=== PATIENT | male | born 2000 | race Caucasian/White ===

== ENCOUNTER 2023-06-27 17:18 | Emergency (ER) | payer OTHER, SELFPAY ==
[2023-06-27] VITALS (15 sets, daily range): BP systolic 131–171; BP diastolic 68–79; PULSE 68–95; RESP 14–23; TEMP 36.4–36.5; O2SAT 97–100
--- NOTE | 2023-06-27 17:15 | RT.EKG_ITS ---
APPROVED REPORT Exam: Resting ECG Reason for Exam: chest pain Patient Location: E HR:91 bpm ECG Measurements Heart Rate 91 AXIS [place] 156 P 84 QRSd 101 QRS 74 QT 456 T 76 QTc 560 Conclusion Sinus rhythm normal axis prolong QTC 560 no priors
--- NOTE | 2023-06-27 17:30 | DI.RAD_ITS ---
Exam(s) XR CHEST 2V PA LATERAL EXAM: XR CHEST 2V PA LATERAL CLINICAL HISTORY: chest pain TECHNIQUE: 2D digital imaging was performed of the chest. Two images were obtained. PA and lateral views were obtained. COMPARISON: No exams were available for comparison FINDINGS: MEDIASTINUM: Normal. HEART: Normal. PULMONARY VASCULATURE: Normal. LUNGS: Clear. PLEURAL SPACE: No pleural effusion or pneumothorax. BONE:Within normal limits for the patient's age. OTHER FINDINGS:Normal. IMPRESSION: No acute pulmonary findings. DATA REPOSITORY: RADIATION DOSE DELIVERED:
[2023-06-27] MEDS: Acetaminophen 325 MG TAB 650 MG PO (17:50)
[2023-06-27 17:51] LABS: Abs Immature Grans 0.01 10^3/uL (0.0-0.06); Absolute Basophil Count 0.04 10^3/uL (0.0-0.2); Absolute Eosinophil Count 0.07 10^3/uL (0.0-0.7); Absolute Lymphocyte Count 3.08 10^3/uL (1.2-3.4); Absolute Monocyte Count 0.79 10^3/uL (0.1-0.8); Absolute Neutrophil Count 3.71 10^3/uL (1.2-6.7); Basophils % 0.5; Eosinophils % 0.9; HCT 43.1 % (40.0-50.0); HGB 14.6 g/dL (13.5-17.5); Immature Grans % 0.1; MCH 29.1 pg (27.0-33.0); MCHC 33.9 % (32.0-36.0); MCV 86 fL (80-95); MPV 11.4 fL (8.0-11.0); Monocytes % 10.3; Neutrophils % 48.2; Platelet Count 208 10^3/uL (130-400); RBC 5.01 10^6/uL (4.36-5.78); RDW 11.8 % (11.8-14.1)
--- NOTE | 2023-06-27 18:13 | ED.GENADUL_ITS ---
HPI General Stated Complaint: Chest Pain EFRAIN: 2 Date/Time Provider Initiated Documentation: 06/27/23 17:22. HPI Narrative: This otherwise healthy 23-year-old male presents with left-sided chest pain with radiation down his left arm which presented approximately an hour after a ski race. He states they are at a restaurant when the pain started. He states he was not eating when the pain started. Denies history of similar symptoms in the past. He has had 2 recent flights to [place] in the past 3 weeks. He denies any calf pain or swelling, pleuritic pain associated or shortness of breath. He denies any nausea or vomiting. There is no history of sudden cardiac in his family family. He denies any regular tobacco use, illicit drug use, or regular alcohol consumption. He denies known exacerbating or alleviating factors, specifically no change with position change. He took 324 mg of aspirin prior to arrival reportedly. Denies history of similar symptoms in the past. Denies nausea, vomiting, diaphoresis. Denies any pain associated specifically with exertion. Denies recent illness, cough, fever, chills. Related Data Home Medications Medication Instructions Recorded Confirmed famotidine 20 mg tablet (Pepcid) 20 mg PO DAILY #14 tabs 06/27/23 omeprazole 20 mg capsule,delayed 20 mg PO DAILY 4 weeks #28 caps 06/27/23 release Previous Rx's Medication Instructions Recorded famotidine 20 mg tablet (Pepcid) 20 mg PO DAILY #14 tabs 06/27/23 omeprazole 20 mg capsule,delayed 20 mg PO DAILY 4 weeks #28 caps 06/27/23 release PFSH All Active Problems (Updated 06/27/23 @ 20:06 by MORIS Frankel) Chest pain (Acute) Social History Smoking/Tobacco Use Status: Current-Occasional Tobacco Type: smokeless tobacco Smoking risk assessment performed?: Yes Alcohol Intake: current Alcohol Intake frequency: holidays/special occasions only Substance use type: does not use Course Vital Signs Vital signs: Vital Signs Temperature 36.5 C 06/27/23 17:25 Pulse 90 06/27/23 17:25 Respiratory Rate 18 06/27/23 17:25 Blood Pressure 157/79 H 06/27/23 17:25 Pulse Oximetry 100 06/27/23 17:25 Temperature 36.5 C 06/27/23 17:25 Temperature Source Temporal Artery Scan 06/27/23 17:25 Pulse 90 06/27/23 17:25 Respiratory Rate 18 06/27/23 17:25 Blood Pressure 157/79 H 06/27/23 17:25 Pulse Oximetry 100 06/27/23 17:25 Oxygen Delivery Method Room Air 06/27/23 17:25 Oxygen Flow Rate 0 06/27/23 17:25 Lab/Test Results Lab/Test Results: Laboratory Tests Range/Units 06/27/23 17:35 WBC (4.4-10.8) 10^3/uL 7.70 RBC (4.36-5.78) 10^6/uL 5.01 Hgb (13.5-17.5) g/dL 14.6 Hct (40.0-50.0) % 43.1 MCV (80-95) fL 86 MCH (27.0-33.0) pg 29.1 MCHC (32.0-36.0) % 33.9 RDW (11.8-14.1) % 11.8 Plt Count (130-400) 10^3/uL 208 MPV (8.0-11.0) fL 11.4 H Immature Gran % 0.1 Neutrophils % 48.2 Lymphocytes % 40.0 Monocytes % 10.3 Eosinophils % 0.9 Basophils % 0.5 Nucleated RBC % (0.0-0.3) % 0.0 Absolute Neutrophils (1.2-6.7) 10^3/uL 3.71 Absolute Lymphocytes (1.2-3.4) 10^3/uL 3.08 Absolute Monocytes (0.1-0.8) 10^3/uL 0.79 Absolute Eosinophils (0.0-0.7) 10^3/uL 0.07 Absolute Basophils (0.0-0.2) 10^3/uL 0.04 Medical Decision Making This 23-year-old male presents with chest pain, started approximately an hour prior to arrival, states he had just eaten dinner, hamburger and [place] fries when the pain came on States left-sided chest pain with radiation into his arm, no family history of coronary artery disease, sudden cardiac , no history of illicit drug use, Patient states the pain has been coming and going He took 325 mg of aspirin prior to arrival Denies any calf pain or swelling Troponin and delta troponin negative Chest x-ray without acute abnormality per radiology interpretation review Low suspicion clinically for PE with negative D-dimer reassuring Symptomatic improvement on Maalox Protonix and Pepcid supplied to treat empirically for GERD Encouraged to follow closely in the outpatient setting Discharge Plan Disposition Patient Disposition: Home Condition: Stable Discharge Details Clinical Impression: Chest pain Primary Care Provider: Pamela,Local ED Provider: Lizy Ellis Home Meds and New Rx's Prescriptions: New famotidine [Pepcid] 20 mg tablet 20 mg PO DAILY Qty: 14 0RF omeprazole 20 mg capsule,delayed release(DR/EC) 20 mg PO DAILY 28 Days Qty: 28 0RF Discharge Instructions Instructions: Chest Pain (ED) Additional Instructions: Please take the Pepcid daily for the next 14 days and take 20 mg of omeprazole for the next month. Prilosec takes approximately 2 weeks to start working so the Pepcid will work daily until the omeprazole kicks in This is an tyzc-ile-inmnkav medication Stay away from spicy food, tomatoes, citrus, alcohol Please return earlier should you have new or worsening complaints Recommend recheck by the [facility] when you return to [facility] and limiting skiing until you are symptomatically improved Discharge Data Discharge Date/Time-TO BE ENTERED AT DEPARTURE: 06/27/23 20:22
[2023-06-27 18:20] LABS: ALT 41 U/L (16-63); AST 25 U/L (15-37); Albumin 4.6 g/dL (3.4-5.0); Alkaline Phosphatase 91 U/L (46-116); Anion Gap 10.6 mmol/L (3-11); BUN 17 mg/dL (7-18); Bilirubin, Total 0.4 mg/dL (0.2-1.0); CO2 28.4 mmol/L (21.0-32.0); CREATININE 1.1 mg/dL (0.70-1.30); Calcium 9.2 mg/dL (8.5-10.1); Chloride 103 mmol/L (98-107); Estimated GFR 97.34 (mL/min/1.73m2); Glucose 108 mg/dL (74-106); Potassium 3.3 mmol/L (3.5-5.1); Sodium 142 mmol/L (136-145); TSH (W/Ref FT4) 2.53 uIU/mL (0.36-3.74); Total Protein 8.2 g/dL (6.4-8.2); Troponin I < 50 ng/L (<or=60)
[2023-06-27 18:22] LABS: D-Dimer 180 ng/mlFEU (<500)
--- NOTE | 2023-06-27 18:30 | RT.EKG_ITS ---
APPROVED REPORT Exam: Resting ECG Reason for Exam: chest pain Patient Location: E HR:83 bpm ECG Measurements Heart Rate 83 AXIS [place] 164 P 80 QRSd 96 QRS 67 QT 372 T 47 QTc 437 Conclusion Sinus rhythm normal axis QTC normal baseline improved
[2023-06-27] MEDS: Mylanta Suspension 30 ML CUP PO (19:16)
--- NOTE | 2023-06-27 19:20 | DI.VRAD_ITS ---
PROCEDURE INFORMATION: Exam: XR Chest Exam date and time: 06/27/2023 6:17 PM Age: 23 years old Clinical indication: Chest wall pain; Patient HX: Chest pain TECHNIQUE: Imaging protocol: Radiologic exam of the chest. Views: 2 views. COMPARISON: No relevant prior studies available. FINDINGS: Lungs: Unremarkable. No consolidation. Pleural spaces: Unremarkable. No pleural effusion. No pneumothorax. Heart/Mediastinum: Unremarkable. No cardiomegaly. Bones/joints: Mild curvature noted in the thoracic spine. Ribs are intact, as visualized. The clavicles are intact. Soft tissues: No abnormal chest wall gas. IMPRESSION: No acute findings. Dictated and Authenticated by: Gene Car MD. Ordering:FRANKO Medel MD
[2023-06-27 20:04] LABS: Troponin I < 50 ng/L (<or=60)
[2023-06-27] MEDS: Famotidine 20 MG TAB PO (20:21)
== END 2023-06-27 20:22 | disposition home or self-care (01) ==
PROVIDERS: Emergency Provider Physician Assistant
DX: R07.9 Chest pain, unspecified (principal); K21.9 Gastro-esophageal reflux disease without esophagitis; R94.31 Abnormal electrocardiogram [ECG] [EKG]; F17.290 Nicotine dependence, other tobacco product, uncomplicated
CPT/HCPCS: 36415; 80053; 93005; 99284; 71046; 83735; 84443; 84484; 85025; 85379; 93010; 99283